=== PATIENT | male | born 1975 | race Caucasian/White ===

== ENCOUNTER 2023-07-14 21:52 | Emergency (ER) | payer BC, SELFPAY ==
[2023-07-14] VITALS (19 sets, daily range): BP systolic 150–180; BP diastolic 85–93; PULSE 89–113; RESP 10–24; TEMP 36.3; O2SAT 95–99; BMI 31.6
--- NOTE | 2023-07-14 22:09 | ECG_ITS ---
The [facility] Test Date: 2023-07-14 Pat Name: Trevor Flores Department: Room: - Gender: Male [employer]er: : 1975 Requested By: Order Number: [id number] Reading MD: ORESTES MCKEON Measurements Intervals [place] Rate: 101 P: 60 [place]: 150 QRS: 81 QRSD: 90 T: 74 QT: 338 QTc: 396 Interpretive Statements 1120 Sinus tachycardia 0102 ARTIFACT PRESENT 9140 abnormal rhythm ECG No previous ECG available for comparison Electronically Signed On 07-16-2023 7:06:42 EST by ORESTES MCKEON
--- NOTE | 2023-07-14 22:09 | XR_ITS ---
The [address] [address] Patient Name: CORNELIUS BARRERA MRN: [id number] date: 1975 Sex: M Assigned Patient Location: ER Current Patient Location: ED.MAIN Accession/Order Number: [id number] Exam Date: 07/14/2023 22:14 Report Date: 07/14/2023 23:06 At the request of: KATEY JEOGN Procedure: XR chest 1V EXAM: XR chest 1V HISTORY: short of breath COMPARISON: Chest x-ray 07/30/2021 TECHNIQUE: Single frontal view chest x-ray FINDINGS: No lung consolidation, large pleural effusion, pneumothorax, or acute bony abnormality. Remote right posterior sixth rib deformity. Cardiac size is unremarkable. XR/XR chest 1V IMPRESSION: No radiographic evidence for acute chest abnormality. Electronically authenticated by: AMIRA RICH Date: 07/14/2023 23:06
--- NOTE | 2023-07-14 22:11 | ED_ITS ---
HPI - SOB/Dyspnea General Chief Complaint: Shortness of Breath/Dyspnea Stated Complaint: sob Time Seen by Provider: 07/14/23 22:04 Source: patient Mode of arrival: walk-in Limitations: no limitations History of Present Illness HPI Narrative: history of asthma. 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 Became short of breath tonight. No chest pain or fever. did use nebulizer at home but remains short of breath MD elicited complaint: shortness of breath Related Data Allergies Allergy/AdvReac Type Severity Reaction Status Date / Time No Known Drug Allergies Allergy Verified 07/14/23 22:00 Review of Systems ROS Status of ROS 10 or more systems reviewed and unremarkable except as noted in history and below Exam Constitutional Vital Signs, click to edit/add: Last Vital Signs Temp 97.3 F L 07/14/23 21:56 Pulse 99 H 07/15/23 00:10 Resp 18 07/15/23 00:10 BP 150/85 H 07/14/23 22:55 Pulse Ox 98 07/14/23 23:48 O2 Del Method Room Air 07/14/23 23:48 Common normals: no apparent distress, average body habitus, oriented x3, no limitations, healthy appearing, alert and well nourished [facility] Common normals: normocephalic and head/scalp atraumatic Respiratory Effort & inspection: audible wheezes Cardio Common normals: regular rate, regular rhythm, S1 normal heart sound and S2 normal heart sound GI Common normals: Normal to inspection, nondistended, normoactive bowel sounds present, soft to palpation and non-tender Extremity Common normals: normal to inspection and full ROM Neuro Common normals: oriented x3, CN's II-XII intact bilaterally, moves all extremities and no focal motor deficits Psych Appearance: grossly normal Course Vital Signs Vital signs: Vital Signs Temperature 97.3 F L 07/14/23 21:56 Pulse Rate 93 H 07/14/23 21:56 Respiratory Rate 24 07/14/23 21:56 Blood Pressure 180/93 H 07/14/23 21:56 Pulse Oximetry 97 07/14/23 21:56 Oxygen Delivery Method Room Air 07/14/23 21:56 Temperature 97.3 F L 07/14/23 21:56 Pulse Rate 99 H 07/15/23 00:10 Respiratory Rate 18 07/15/23 00:10 Blood Pressure 150/85 H 07/14/23 22:55 Pulse Oximetry 98 07/14/23 23:48 Oxygen Delivery Method Room Air 07/14/23 23:48 MDM - SOB/Dyspnea MDM Narrative Medical decision making narrative: patient presents with acute asthma flare up. On admission chest with diffuse wheeze. Treated successfully with solumedrol and albuterol NMT x2. At the time of discharge was no longer wheezing and feeling better. His potassium was low at 3.1 and it was supplemented prior to discharge Lab Data Labs: Lab Results 07/14/23 Range/Units 22:07 WBC 6.8 (4.0-11.0) 10^3/uL RBC 4.11 L (4.70-6.10) 10^6/uL Hgb 13.0 L (14.0-18.0) g/dL Hct 38.1 L (42.0-54.0) % MCV 92.7 (80.0-94.0) fL MCH 31.6 (25.9-34.0) pg MCHC 34.1 (29.9-35.2) g/dL RDW 12.3 (11.0-15.0) % Plt Count 192 (150-450) 10^3/uL MPV 9.6 (9.5-13.5) fL Neut % (Auto) 58.9 (43.0-75.0) % Lymph % (Auto) 26.8 (20.5-60.0) % [place] % (Auto) 7.4 (1.7-12.0) % Eos % (Auto) 5.9 (0.9-7.0) % Baso % (Auto) 0.6 (0.2-2.0) % Neut # (Auto) 4.0 (1.4-6.5) 10^3/uL Lymph # (Auto) 1.8 (1.2-3.8) 10^3/uL [place] # (Auto) 0.5 (0.3-0.8) 10^3/uL Eos # (Auto) 0.4 (0.0-0.7) 10^3/uL Baso # (Auto) 0.0 (0.0-0.1) 10^3/uL Abs Immat Gran (auto) 0.03 (0.00-0.03) 10^3/uL Imm/Tot Granulo (auto) 0.4 (0.0-0.5) % D-Dimer <0.19 (<=0.59) mg/L FEU Sodium 141 (136-145) mmol/L Potassium 3.0 L (3.5-5.1) mmol/L Chloride 104 (98-107) mmol/L Carbon Dioxide 27.8 (21.0-32.0) mmol/L Anion Gap 12.2 BUN 14.0 (7.0-18.0) mg/dL Creatinine 1.16 (0.70-1.30) mg/dL Est GFR ( Amer) >60 (>=60) Est GFR (Non-Af Amer) >60 (>=60) BUN/Creatinine Ratio 12.1 Glucose 100 (74-106) mg/dL Calcium 8.5 (8.5-10.1) mg/dL Troponin I High Sens 5.4 (4.0-76.1) pg/mL Discharge Plan Discharge Chief Complaint: Shortness of Breath/Dyspnea Clinical Impression: Asthma with acute exacerbation Patient Disposition: Home, Self-Care Instructions: Asthma (ED) Stand Alone Forms: Portal Instructions Referrals: ALEJA MEADOWS [Primary Care Provider] - 1 week
[2023-07-14 22:34] LABS: Basophils Percent Auto 0.6 % (0.2-2.0); Eosinophils Absolute Auto 0.4 10^3/uL (0.0-0.7); Eosinophils Percent Auto 5.9 % (0.9-7.0); Hematocrit 38.1 % (42.0-54.0); Immature Granulocytes Abs Auto 0.03 10^3/uL (0.00-0.03); Immature Granulocytes Pct Auto 0.4 % (0.0-0.5); Lymphocytes Absolute Auto 1.8 10^3/uL (1.2-3.8); Lymphocytes Percent Auto 26.8 % (20.5-60.0); Mean Corpuscular HGB Conc 34.1 g/dL (29.9-35.2); Mean Corpuscular Hemoglobin 31.6 pg (25.9-34.0); Mean Corpuscular Volume 92.7 fL (80.0-94.0); Mean Platelet Volume 9.6 fL (9.5-13.5); Monocytes Absolute Auto 0.5 10^3/uL (0.3-0.8); Monocytes Percent Auto 7.4 % (1.7-12.0); Neutrophils Percent Auto 58.9 % (43.0-75.0); Platelet Count 192 10^3/uL (150-450); Red Blood Count 4.11 10^6/uL (4.70-6.10); Red Cell Distribution Width 12.3 % (11.0-15.0); White Blood Count 6.8 10^3/uL (4.0-11.0)
[2023-07-14] MEDS: ALBUTEROL SULFATE 2.5 MG/3 ML VIAL NEB IH ×2 (22:36→23:39)
[2023-07-14 22:51] LABS: D Dimer <0.19 mg/L FEU (<=0.59)
[2023-07-14 22:54] LABS: Anion Gap 12.2; BUN Creatinine Ratio 12.1; Calcium 8.5 mg/dL (8.5-10.1); Carbon Dioxide 27.8 mmol/L (21.0-32.0); Chloride 104 mmol/L (98-107); Estimated GFR (African America >60 (>=60); Estimated GFR (Non-African Ame >60 (>=60); Glucose 100 mg/dL (74-106); Sodium 141 mmol/L (136-145); Troponin I High Sensitivity 5.4 pg/mL (4.0-76.1)
[2023-07-14] MEDS: METHYLPREDNISOLONE SOD SUCC PF 125 MG/2 ML VIAL IVP (22:54)
[2023-07-15] VITALS: PULSE 92; RESP 16
[2023-07-15 00:10] VITALS: PULSE 99; RESP 18
[2023-07-15] MEDS: POTASSIUM CHLORIDE 10 MEQ ER TABLET 40 MEQ PO (00:33)
[2023-07-15 00:38] VITALS: BP 158/85; PULSE 92; RESP 15; O2SAT 98
--- OUTSIDE RECORDS SUMMARY | 2023-08-20 17:00 | XMS_ITS | CCD ---
Author Name Unknown Address [address] [place] [address] [address] [place] [id number] Organization [facility] Care Team Providers Care Embedded Software Developer Name Role Phone COLLEEN ABBOTT Consulting Unavailable TED, DR JIMENEZ Primary Care Unavailable COLLEEN ABBOTT Admitting Unavailable COLLEEN ABBOTT Attending Unavailable KATEY JEONG Attending Unavailable KATEY JEONG Consulting Unavailable JEAN-PAUL, KATEY Admitting Unavailable TED, DR JIMENEZ Primary Care Unavailable REVA HOLDEN Consulting Unavailable Nicolette Caldwell Referring Unavailable Appiah, Basem G. Attending Unavailable Appiah, Basem G. Attending Unavailable Appiah, Basem G. Referring Unavailable Appiah, Basem G. Attending Unavailable Appiah, Basem G. Admitting Unavailable Appiah, Basem G. Referring Unavailable Appiah, Basem G. Attending Unavailable Appiah, Basem G. Referring Unavailable Problems Active Problems Problem Classification Problem Date Documented Da te Episodic/Chronic Asthma (1 source) Unspecified asthma, uncomplicated; Translations: [UNSPECIFIED ASTHMA UNCOMPLICATED] Onset: 08-01-2021 Chronic Other lower respiratory disease (3 sources) Shortness of breath; Translations: [SHORTNESS OF BREATH] Onset: 07-30-2021 Episodic Past or Other Problems Problem Classification Problem Date Documented Da te Episodic/Chronic Other inflammatory condition of skin (3 sources) Erythematous condition, unspecified; Translations: [ERYTHEMATOUS CONDITION UNSPECIFIED] Onset: 02-05-2021 Episodic Residual codes; unclassified (1 source) Localized edema; Translations: [LOCALIZED EDEMA] Onset: 02-07-2021 Episodic Skin and subcutaneous tissue infections (1 source) Cellulitis of left lower limb; Translations: [CELLULITIS OF LEFT LOWER LIMB] Onset: 02-07-2021 Episodic Results Test Name Value Interpretation Reference Range Facil ity Patient Eval Forms Officeon 08-05-2023 Patient Eval Forms Office [id number]#1.00TIFF Kurt Humphreys [facility] Sleep Office/Clinic Noteon 1 10-06-2022 Sleep Office/Clinic Note History of Pres ent Illness Here for follow-up after initiating BiPAP. The patient reports that has been using his BiPAP at a pressure of 18/14 cm via a hybrid fullface mask with good tolerance. His reports no further snoring while he is on the machine and he had noticed significant improvement in his sleep quality and energy during the day.He reports that his weight has been relatively stable. Review of Systems Constitutional: no fever, no chills, no sweats, no weakness Skin: no Jaundice, no rash, no lesions, no petechiae ENT: no ear pain, no sore throat, no congestion, no hoarseness Respiratory: Denies shortness of breath, cough or wheezing Cardiovascular: no chest pain, no palpitations, no edema Gastrointestinal: no nausea, no vomiting, no diarrhea, no GI bleeding Genitourinary: no dysuria, no hematuria, no discharge, no pain Musculoskeletal: no back pain, no trauma Neurologic: no headache, no dizziness, no numbness, no weakness Psychiatric: no irritability, no mood swings/depression. Heme/Lymph: no bleeding tendency, no bruising tendency, no petechiae, no swollen nodes Allergy/Immunologic: no seasonal allergies, no food allergies, no recurrent infections, no impaired immunity Additional ROS info: Except as noted in the above Review of Systems and in the History of Present Illness all other systems have been reviewed and are negative or noncontributory. Physical Exam General: Awake and alert in no acute distress HEENT: NC, AT. Prolonged soft palate Neck: Supple no JVD Assessment/Plan 1. MODESTO (obstructive sleep apnea) (G47.33: Obstructive sleep apnea (adult) (pediatric)) Appears to be doing well on current pressures without significant side effects with good tolerance and compliance with CPAP with a significant improvement in the apnea hypopnea index to 1.1/hour based on his most recent download from July 02, 2023 to July 31, 2023 which was reviewed with the patient today. The patient was advised to clean the machine regularly and change supplies as needed. Avoid driving while sleepy and avoid sedatives and hypnotics such as alcohol. We will continue with same pressure unless new issues develop and see the patient back after 1 year. The patient will call us back in the meantime if any issues. Follow-up With When Contact Information Td MCDONNELL, Ayaka Malone, PRATIK MANCIA Within 1 year [address] [place] [address]- Additional Instructions: Problem List/Past Medical History Ongoing No qualifying data Historical No qualifying data Medications No active medications Allergies No active allergies [facility] Comment on above: Result Comment: Elec tronically Signed By: Td MCDONNELL, Ayaka Malone\.br\Date and Time Signed: 08/05/23 12:15 EST Consenton 05-28-2023 Consent [id number]#1.00 CD:127 [facility] Patient Eval Forms Officeon 05-28-2023 Patient Eval Forms Office [id number]#1.00CD:127 [facility] Patient Eval Forms Office [id number]#1.00CD:127 [facility] Prescriptions/Work Noteson 0 05-28-2023 Prescriptions/Work Notes [id number]#1.00CD:127 [facility] Consent for Treatmenton 05-04 Consent for Treatment [id number]#1.00CD:127 [facility] Physician Orderon 05-09-2023 Physician Order [id number]#1.00CD:127 [facility] Insurance Correspondenceon 0 05-08-2023 Insurance Correspondence [id number]#1.00CD:127 [facility] Consenton 05-02-2023 Consent [id number]#1.00CD :127 [facility] Consent for Treatmenton 04-04 Consent for Treatment [id number]#1.00CD:127 [facility] Physician Orderon 04-30-2023 Physician Order [id number]#1.00CD:127 [facility] Insurance Correspondenceon 04-25-2023 Insurance Correspondence [id number]#1.00CD:127 [facility] Patient Eval Forms Officeon 04-22-2023 Patient Eval Forms Office [id number]#1.00CD:127 [facility] Physician Orderon 04-22-2023 Physician Order [id number]#1.00CD:127 [facility] Consent for Treatmenton 04-02 Consent for Treatment [id number]#1.00CD:127 [facility] Sleep Office/Clinic Noteon 04-19-2023 Sleep Office/Clinic Note History of Pres ent Illness Here to establish care for possible obstructive sleep apnea. The patient reports that he was told by his that he snores loudly and stops breathing frequently at night. He himself feels that his sleep is somewhat disrupted as he wakes up frequently at night and has somewhat of a fatigue and mild daytime sleepiness throughout the day. He reports that his weight has been stable over the past few years. Review of Systems Constitutional: no fever, no chills, no sweats, no weakness Skin: no Jaundice, no rash, no lesions, no petechiae ENT: no ear pain, no sore throat, no congestion, no hoarseness Respiratory: Denies shortness of breath, cough or wheezing Cardiovascular: no chest pain, no palpitations, no edema Gastrointestinal: no nausea, no vomiting, no diarrhea, no GI bleeding Genitourinary: no dysuria, no hematuria, no discharge, no pain Musculoskeletal: no back pain, no trauma Neurologic: no headache, no dizziness, no numbness, no weakness Psychiatric: no irritability, no mood swings/depression. Heme/Lymph: no bleeding tendency, no bruising tendency, no petechiae, no swollen nodes Allergy/Immunologic: no seasonal allergies, no food allergies, no recurrent infections, no impaired immunity Additional ROS info: Except as noted in the above Review of Systems and in the History of Present Illness all other systems have been reviewed and are negative or noncontributory. Physical Exam General: Awake, alert, in no acute distress Skin: warm, dry Head: no trauma, normocephalic. Prolonged soft palate Neck: Trachea midline, no adenopathy, no tenderness Eye: normal conjunctiva, sclera clear ENMT: TM's clear, oral mucosa moist, no pharyngeal erythema or exudate Cardiovascular: regular rate and rhythm, normal peripheral perfusion Respiratory: Good breath sounds to both lung triana without wheezing or crackles. Gastrointestinal: soft, non distended, no tenderness, no guarding. Back: No tenderness, Normal ROM, Normal alignment. Extremities: no deformity, no trauma Neurological: oriented x 4, LOC appropriate for age, CN II-XII intact, motor strength equal & normal bilaterally, sensation equal & normal bilaterally, speech normal Psychiatric: cooperative, affect appropriate for age, normal judgement, normal psychiatric thoughts. Assessment/Plan 1. MODESTO (obstructive sleep apnea) (G47.33: Obstructive sleep apnea (adult) (pediatric)) Highly likely given the patient's symptoms, physical examination and risk factors. The etiology of obstructive sleep apnea and methods of diagnoses and treatment were discussed with the patient in details. (video recorded by his was reviewed) The patient is agreeable to testing and treatment if clinically indicated. I will arrange for sleep study and see him back after his testing is completed. He will call me back in the meantime if any issues. Ordered: HST Home Sleep Testing Follow-up With When Contact Information Td MCDONNELL, Duncan Kira, PUL, PRATIK [address] [facility] [place] [address]- Additional Instructions: after his testing is completed Problem List/Past Medical History Ongoing No qualifying data Historical No qualifying data Medications No active medications Allergies No active allergies Normal [facility] Comment on above: Result Comment: Elec tronically Signed By: Td MCDONNELL, Ayaka G.\.br\Date and Time Signed: 04/19/23 09:40 EDT CBC AUTO DIFFon 07-30-2021 BASO # 0.1 103/ul Normal 0.0-0.1 [facility] Comment on above: Performed By: #### C BC #### [facility] [address] [place] [address] Dr. Ivonne Velez Basophils/100 WBC (Bld) 0.8 % Normal 0.2-2.[address] [facility] Comment on above: Performed By: #### C BC #### [facility] [address] [place] [address] Dr. Ivonne Velez EO # 0.6 103/ul Normal 0.0-0.7 [facility] Comment on above: Performed By: #### C BC #### [facility] [address] [place] [address] Dr. Ivonne Velez Eosinophils/100 WBC (Bld) 7.5 % Critically high 0.9-7 .0 [facility] Comment on above: Performed By: #### C BC #### [facility] [address] [place] [address] Dr. Ivonne Velez Erythrocyte distribution wid th (RBC) [Ratio] 12.3 % Normal 11.0-15.0 [facility] Comment on above: Performed By: #### C BC #### [facility] [address] [place] [address] Dr. Ivonne Velez Hematocrit (Bld) [Volume fraction] 44.1 % Normal 4 2.0-54.0 [facility] Comment on above: Performed By: #### C BC #### [facility] [address] [place] [address] Dr. Ivonne Velez Hemoglobin (Bld) [Mass/Vol] 14.8 g/dL Normal 14.0-18. 0 [facility] Comment on above: Performed By: #### C BC #### [facility] [address] [place] [address] Dr. Ivonne Velez IG # 0.06 10e3/ul Critically high 0.00-0.03 [facility] Comment on above: Performed By: #### C BC #### [facility] [address] [place] [address] Dr. Ivonne Velez IG % 0.8 % Critically high 0.0-0.5 [facility] Comment on above: Performed By: #### C BC #### [facility] [address] [place] [address] Dr. Ivonne Velez LYMPH # 2.3 103/ul Normal 1.2-3.8 [facility] Comment on above: Performed By: #### C BC #### [facility] [address] [place] [address] Dr. Ivonne Velez Lymphocytes/100 WBC (Bld) 29.8 % Normal 20.5-60.0 [facility] Comment on above: Performed By: #### C BC #### [facility] [address] [place] [address] Dr. Ivonne Velez MANUAL DIFF REQ NO Normal [facility] Comment on above: Performed By: #### C BC #### [facility] [address] [place] [address] Dr. Ivonne Velez MCH (RBC) [Entitic mass] 31.2 pg Normal 25.9-34.0 [facility] Comment on above: Performed By: #### C BC #### [facility] [address] [place] [address] Dr. Ivonne Velez MCHC (RBC) [Mass/Vol] 33.6 g/dL Normal 29.9-35.2 [facility] Comment on above: Performed By: #### C BC #### [facility] [address] [place] [address] Dr. Ivonne Velez MCV (RBC) [Entitic vol] 92.8 fL Normal 80.0-94.[address] [facility] Comment on above: Performed By: #### C BC #### [facility] [address] [place] [address] Dr. Ivonne Velez MONO # 0.6 103/ul Normal 0.3-0.8 [facility] Comment on above: Performed By: #### C BC #### [facility] [address] [place] [address] Dr. Ivonne Velez Monocytes/100 WBC (Bld) 7.7 % Normal 1.7-12.[address] [facility] Comment on above: Performed By: #### C BC #### [facility] [address] [place] [address] Dr. Ivonne Velez NEUT # 4.1 103/ul Normal 1.4-6.5 [facility] Comment on above: Performed By: #### C BC #### [facility] [address] [place] [address] Dr. Ivonne Velez Neutrophils/100 WBC (Bld) 53.4 % Normal 43.0-75.0 [facility] Comment on above: Performed By: #### C BC #### [facility] [address] [place] [address] Dr. Ivonne Velez Platelet mean volume (Bld) [Entitic vol] 9.7 fL Normal 9.5-13.5 [facility] Comment on above: Performed By: #### C BC #### [facility] [address] [place] [address] Dr. Ivonne Velez PLT 239 103/ul Normal 150-450 [facility] Comment on above: Performed By: #### C BC #### [facility] [address] [place] [address] Dr. Ivonne Velez RBC 4.75 106/ul Normal 4.70-6.[address] [facility] Comment on above: Performed By: #### C BC #### [facility] [address] [place] [address] Dr. Ivonne Velez WBC 7.6 103/ul Normal 4.0-11.0 [facility] Comment on above: Performed By: #### C BC #### [facility] [address] [place] [address] Dr. Ivonne Velez PROF CHEM 8 (BAS METB)on Anion gap [Moles/Vol] 11.6 mmol/L Normal [facility] Comment on above: Performed By: #### B MP #### [facility] [address] [address] [address] Ivonne Velez Calcium [Mass/Vol] 9.0 mg/dL Normal 8.4-10.2 [facility] Comment on above: Performed By: #### B MP #### [facility] [address] [address] [address] Ivonne Velez Chloride [Moles/Vol] 104 mmol/L Normal 98-107 [facility] Comment on above: Performed By: #### B MP #### [facility] [address] [place] [address] Dr. Ivonne Velez CO2 [Moles/Vol] 28.0 mmol/L Normal 22.0-30.0 [facility] Comment on above: Performed By: #### B MP #### [facility] [address] [place] [address] Dr. Ivonne Velez Creatinine [Mass/Vol] 1.19 mg/dL Normal 0.66-1.25 [facility] Comment on above: Performed By: #### B MP #### [facility] [address] [place] [address] Dr. Ivonne Velez EGFR-AF GIBRALTARIAN >60 Normal >=60 [facility] Comment on above: Performed By: #### B MP #### [facility] [address] [place] [address] Dr. Ivonne Velez EGFR-NON AF GIBRALTARIAN >60 Normal >=60 [facility] Comment on above: Performed By: #### B MP #### [facility] [address] [place] [address] Dr. Ivonne Velez Glucose [Mass/Vol] 111 mg/dL Critically high 74-[address] [facility] Comment on above: Performed By: #### B MP #### [facility] [address] [place] [address] Dr. Ivonne Velez Potassium [Moles/Vol] 3.6 mmol/L Normal 3.4-5.0 [facility] Comment on above: Performed By: #### B MP #### [facility] [address] [address] [address] Ivonne Velez Sodium [Moles/Vol] 140 mmol/L Normal 137-145 [facility] Comment on above: Performed By: #### B MP #### [facility] [address] [place], [place] [address] Dr. Ivonne Velez Urea nitrogen [Mass/Vol] 15.0 mg/dL Normal 9.0-20.0 [facility] Comment on above: Performed By: #### B MP #### [facility] [address] [address] [address] Ivonne Velez Urea nitrogen/Creatinine [Mass ratio] 12.6 mg/mg Normal [facility] Comment on above: Performed By: #### B MP #### [facility] [address] [address] [address] Ivonne Velez XR CHEST 2 Von 07-30-2021 XR CHEST 2 V EXAM: XR CHEST 2 V HISTORY: SHORTNESS OF BREATH COMPARISON: Chest radiographs dated 07/08/2004. TECHNIQUE: 2 views of the chest were obtained. FINDINGS: The cardiac silhouette is normal in size. There is no significant pneumothorax or pleural effusion. There is a remote posterior right sixth rib fracture with associated sclerosis. IMPRESSION: 1. No acute cardiopulmonary abnormality. 2. Remote posterior right sixth rib fracture with associated sclerosis. Electronically authenticated by: Ernesto HOLDEN Date: 2021-07-30 04:03 Normal [facility] Encounters Encounter Date Encounter Type Care Provider Facility Start: 08-05-2023 End: 08-06-2023 ambulatory Ayaka Appiah [facility] Start: 05-27-2023 End: 05-28-2023 ambulatory Basedon Bakerdad Facility:[facility] Start: 05-02-2023 End: 05-03-2023 ambulatory Ayaka Bakerdad Facility:[facility] Start: 04-19-2023 End: 04-20-2023 ambulatory Nicolette Caldwell Facility:[facility] Start: 07-30-2021 End: 07-30-2021 ambulatory KATEY JEONG Facility: Start: 02-05-2021 End: 02-06-2021 ambulatory COLLEEN ABBOTT Facility:[facility] Payers Date Payer Category Payer Unknown [id number] 1975 Unknown [id number] 2.16.84 [id number] 1975 Unknown [id number] 2.16.84 [id number] 1973 Unknown [id number] 2.16.8 [id number] 1973 Unknown [id number] 2.16.8 [id number] 1973 Unknown [id number] 2.16.8 [id number] 1973 Unknown [id number] 2.16.8 [id number] 1959 Unknown [id number] 1961 Unknown [id number] Summary Purpose Family History No Family History Records FoundNo Family History Records Found Advance Directives No Advanced Directives Records FoundNo Advanced Directives Records Found Additional Source Comments (unrecognized sect ion and content) No Status Records FoundNo Status Records Found INFORMATION SOURCE (unrecogn ized section and content) DATE CREATED AUTHOR 08/02/2021 [facility] DATE CREATED AUTHOR AUTHOR'S JOANIZ ATGEENA 08/07/[address] [facility] FOR RECORDS PERTAINING TO PATIENTS WHO ARE OR HAVE BEEN ENROLLED IN A CHEMICAL DEPENDENCY/SUBSTANCEABUSE PROGRAM, SOME INFORMATION MAY BE OMITTED. This clinical summary was aggregated from multiple sources. Caution should be exercised in using it in the provision of clinical care. This summary normalizes information from multiple sources, and as a consequence, information in this document may materially change the coding, format and clinical context of patient data. In addition, data may be omitted in some cases. CLINICAL DECISIONS SHOULD BE BASED ON THE PRIMARY CLINICAL RECORDS. [facility] [employer] [facility]. provides no warranty or guarantee of the accuracy or completeness of information in this document.
== END 2023-07-15 00:40 | disposition home or self-care (01) ==
PROVIDERS: Emergency Provider Internal Medicine; PCP Family Medicine
DX: J45.901 Unspecified asthma with (acute) exacerbation (principal)
CPT/HCPCS: 36415; 71045; 80048; 84484; 85025; 85378; 93005; 94640; 96374; 99285; J2930